=== PATIENT | male | born 1960 | race African-American/Black ===

== ENCOUNTER 2023-04-09 11:19 | Emergency (ER) | payer MEDICAID ==
[~2023-04-09] VITALS: Ht 182.9 cm; Wt 122.0 kg
[~2023-04-09 11:19] MED LIST: AMLO10TA80 PO; ASPI-1406 PO; BLOO-1812 MC; CLOP-31 PO; FAMO20TA8 PO; FERR325T6 PO; INSU100I68 SUBCUT; METF-414 MT; NEED-122 SQ
[2023-04-09 11:21] VITALS: BP 175/67; PULSE 103; RESP 16; TEMP 98.2; O2SAT 99
== END 2023-04-09 13:31 | disposition left against medical advice (07) ==
LOC: ER 11:19
DX: Z53.21 Procedure and treatment not carried out due to patient leaving prior to being seen by health care provider (principal)
CPT/HCPCS: 99281